=== PATIENT | male | born 1940 | race Caucasian/White ===

== ENCOUNTER → 2016-11-29 | Outpatient (CLI) | payer OTHER, MEDICARE ==
--- NOTE | 2016-11-29 11:17 | DX ---
"Chest, Two Views at 1014 hours History: Cough, interstitial lung disease. Previous CT with pulmonary nodules and emphysema. Comparison: CT chest April 2016, chest x-ray March 2015. Findings: Cardiac silhouette is within normal range. Median sternotomy wires and mediastinal clips. A therosclerotic tortuous aorta. Pleural-parenchymal scarring bilateral lung apices. Lucencies in both lungs consistent with emphysema. Previously identified pulmonary nodules are better identified on the prior CT than on today's chest x-ray. No pneumonia, congestive heart failure, pleural effusion, or p neumothorax. Impression: 1. No acute pneumonia or pulmonary edema. 2. Severe COPD. 3. 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 4. Prior CT chest from April [address] chest in April 2017 to ensure stability of th e pulmonary nodules. Recommendation: CT chest April 2017. A Follow-Up Required test result has been communicated via the [employer] | Critical Result syst em on 11/29/2016 11:00, Message ID [id number]."
== END ==
LOC: CIMAGING 10:04
PROVIDERS: ATTEND Family Medicine
DX: J44.9 Chronic obstructive pulmonary disease, unspecified (principal); I70.0 Atherosclerosis of aorta; R91.1 Solitary pulmonary nodule; Z95.1 Presence of aortocoronary bypass graft
CPT/HCPCS: 71020-PO

== ENCOUNTER → 2017-01-27 | Outpatient (CLI) | payer OTHER, MEDICARE | LOC: CIMAGING 10:23 | PROVIDERS: ATTEND Family Medicine | DX: R10.31 Right lower quadrant pain (principal); M54.5 Low back pain | CPT/HCPCS: 76870-PO ==

== ENCOUNTER → 2017-06-16 | Outpatient (CLI) | payer OTHER, MEDICARE | LOC: CIMAGING 10:05 | PROVIDERS: ATTEND Family Medicine | DX: R91.8 Other nonspecific abnormal finding of lung field (principal) | CPT/HCPCS: 71250-PO ==

== ENCOUNTER → 2019-02-19 | Outpatient (CLI) | payer OTHER, MEDICARE | LOC: CIMAGING 14:20 | PROVIDERS: ATTEND Internal Medicine Pulmonary Disease | DX: J44.9 Chronic obstructive pulmonary disease, unspecified (principal); R53.83 Other fatigue; Z87.891 Personal history of nicotine dependence | CPT/HCPCS: 71046-PO ==